=== PATIENT | female | born 1980 | race Caucasian/White ===

== ENCOUNTER 2022-07-31 06:14 | Inpatient (IN) ==
[2022-07-31] MEDS ORDERED: cefOXitin 2,000 MG in 0.9 % Sodium Chloride 20 ML IVP ONE (06:36)
[2022-07-31] MEDS ORDERED: *HR* Propofol 200 MG/20 ML VIAL IVP ONE ×2 (07:31→07:32)
[2022-07-31] MEDS ORDERED: *HR* Midazolam HCl 2 MG/2 ML VIAL ONE (07:31)
[2022-07-31] MEDS ORDERED: *HR* FentaNYL (PF) 100 MCG/2 ML VIAL ONE (07:31)
[2022-07-31] MEDS ORDERED: Scopolamine Patch 1.5 MG PATCH.TD72 TD ONE (07:32)
[2022-07-31] MEDS ORDERED: Lidocaine -MPF 2% 2 ML VIAL ONE (07:33)
[2022-07-31] MEDS ORDERED: *HR* Succinylcholine 200 MG/10 ML VIAL IVP ONE (07:33)
[2022-07-31] MEDS ORDERED: Ondansetron 4 MG/2 ML VIAL ONE (07:33)
[2022-07-31] MEDS ORDERED: Lidocaine HCL 4 ML Topical Solution (Laryng-O-Jet Kit Sterile Pak) TP ONE (07:33)
[2022-07-31] MEDS ORDERED: *HR* Rocuronium Bromide 50 MG/5 ML VIAL ONE (07:33)
[2022-07-31] MEDS ORDERED: Acetaminophen IV 1,000 MG/100 ML BAG IVPB ONE (07:33)
[2022-07-31] MEDS ORDERED: Sugammadex Sodium 200 MG/2 ML VIAL IV ONE (07:35)
[2022-07-31] MEDS: Ringers Solution, Lactated 1,000 ML IVC SCH ×2 (07:40→14:43)
[2022-07-31] MEDS ORDERED: *HR* HYDROMORPHONE 2 MG/ML VIAL ONE (08:38)
[2022-07-31] MEDS ORDERED: Ketorolac 30 MG/ML VIAL ONE (10:07)
[2022-07-31] MEDS ORDERED: *HR* HYDROcodone/Acet 5/325 mg TABLET PO PRN (10:23)
[2022-07-31] MEDS ORDERED: Ibuprofen 800 MG TABLET PO PRN (10:23)
[2022-07-31] MEDS ORDERED: Ondansetron 4 MG/2 ML VIAL IVP PRN (10:23)
[2022-07-31] MEDS ORDERED: Naloxone 0.4 MG/ML INJ IVP PRN (10:23)
[2022-07-31] MEDS: *HR* HYDROmorphone PF 0.5 MG/0.5 ML SYRINGE IVP PRN ×2 (10:58→11:04)
[2022-07-31] MEDS: Ketorolac 30 MG/ML VIAL IVP PRN ×2 (14:42→21:43)
[2022-07-31] MEDS: cefOXitin 2,000 MG in 0.9 % Sodium Chloride 20 ML IVP SCH ×2 (14:43→23:33)
[2022-07-31] MEDS ORDERED: Metoclopramide 10 MG/2 ML VIAL IVP ONE (18:06)
[2022-08-01] MEDS: Ketorolac 30 MG/ML VIAL IVP PRN (04:11)
[2022-08-01 04:45] LABS: Basophils % 0.2 %; Eosinophils % 0.1 %; Hematocrit 33.7 % (35.3-44.9); Hemoglobin 11.6 g/dL (11.5-15.4); Immature Granulocytes % 0.4 % (0-4); Lymphocytes # 1.5 K/mcL (0.6-4.6); Lymphocytes % 17.2 %; Mean Corpuscular HGB Conc 34.4 g/dL (31.6-35.5); Mean Corpuscular Hemoglobin 31.7 pg (28.0-33.3); Mean Corpuscular Volume 92.1 fL (83.0-100.0); Mean Platelet Volume 9.2 fL (9.4-12.4); Monocytes # 0.9 K/mcL (0.0-1.3); Monocytes % 9.9 %; Neutrophils # 6.2 K/mcL (1.6-8.9); Platelet Count 212 K/mcL (140-400); Red Blood Count 3.66 M/mcL (3.82-4.97); Red Cell Distribution Width 12.1 % (11.5-14.5); Segmented Neutrophils % 72.2 %; White Blood Count 8.6 K/mcL (4.3-11.1)
[2022-08-01] MEDS ORDERED: Acetaminophen 325 MG TABLET PO SCH (07:30)
[2022-08-01 07:31] VITALS: BP 116/69; TEMP 98.6
[2022-08-01] MEDS: cefOXitin 2,000 MG in 0.9 % Sodium Chloride 20 ML IVP SCH (07:54)
[2022-08-01] MEDS ORDERED: Rimegepant Sulfate [Nurtec Odt] 75 MG Tab.Rapdis PO PRN (09:00)
[2022-08-01] MEDS ORDERED: Famotidine 20 MG TABLET PO SCH (09:00)
[2022-08-01] MEDS ORDERED: Ketorolac 30 MG/ML VIAL IVP SCH (10:00)
[2022-08-01 10:03] VITALS: PULSE 84; O2SAT 100
== END 2022-08-01 10:00 | disposition home or self-care (01) | DRG 743 ==
LOC: SAMDAY 06:14 → 1NENUPED 08:05
PROVIDERS: ADMIT Obstetrics & Gynecology; ATTEND Obstetrics & Gynecology